=== PATIENT | female | born 1980 | race Caucasian/White ===

== ENCOUNTER 2017-02-19 23:02 | Inpatient (IN) | payer OTHER ==
[~2017-02-19] VITALS: Ht 149.9 cm; Wt 77.1 kg
[2017-02-20] VITALS (9 sets, daily range): BP systolic 90–134; BP diastolic 46–86
[2017-02-20 01:09] LABS: BASOPHIL % 0.4 % (0-2); PLATELET COUNT 392 x10^3mcL (130-400); RED CELL DISTRIBUTION WIDTH 13.8 % (11.5-14.5)
[2017-02-20 01:12] LABS: CALCIUM 8.5 mg/dL (8.5-10.1); CARBON DIOXIDE 26.5 mmol/L (21-32); CHLORIDE SERUM 105 mmol/L (98-107); CREATININE SERUM 0.8 mg/dL (0.6-1.0); GFR1 > 60 mL/min; GLUCOSE SERUM 288 mg/dL (74-106); POTASSIUM SERUM 3.6 mmol/L (3.5-5.1); SODIUM SERUM 138 mmol/L (136-145)
[2017-02-20 01:18] LABS: ALKALINE PHOSPHATASE 148 U/L (46-116); ALT/SGPT 25 U/L (14-59); AST/SGOT 17 U/L (15-37); BILIRUBIN TOTAL 0.28 mg/dL (0.20-1.00); TOTAL PROTEIN, SERUM 7.4 g/dL (6.4-8.2)
[2017-02-20 01:19] LABS: ALBUMIN 3.3 g/dL (3.4-5.0)
[2017-02-20] MEDS ORDERED: METFORMIN HYDR500 M1 PO (01:31)
[2017-02-20 04:35] LABS: CHOLESTEROL/HDL RATIO 5.1; PHOSPHOROUS 3.3 mg/dL (2.5-4.9)
[2017-02-20 04:41] LABS: T3 TOTAL 1.22 ng/mL
[2017-02-20 04:42] LABS: FREE T4 1.18 ng/dL (0.76-1.46); FREE THYROXINE INDEX 3.5 ug/dL (1.4-4.5); T4(THYROXINE) 10.2 ug/dL (4.7-13.3)
[2017-02-20 05:57] LABS: microscopic required? NO
[2017-02-20 06:45] LABS: BASOPHIL % 0.2 % (0-2); PLATELET COUNT 344 x10^3mcL (130-400); RED CELL DISTRIBUTION WIDTH 13.9 % (11.5-14.5)
[2017-02-20 06:54] LABS: CALCIUM 8.1 mg/dL (8.5-10.1); CARBON DIOXIDE 20.9 mmol/L (21-32); CHLORIDE SERUM 107 mmol/L (98-107); CREATININE SERUM 0.8 mg/dL (0.6-1.0); GFR1 > 60 mL/min; GLUCOSE SERUM 315 mg/dL (74-106); POTASSIUM SERUM 3.9 mmol/L (3.5-5.1); SODIUM SERUM 139 mmol/L (136-145)
[2017-02-20 07:34] LABS: UA SPECIFIC GRAVITY 1.025 (1.005-1.035); urine erythrocyte NEGATIVE (NEGATIVE)
[2017-02-20 07:37] LABS: AMPHETAMINE QUAL UR NONE DETECTED (NEG <=1000)
[2017-02-21 05:39] VITALS: BP 108/63
[2017-02-21 06:59] LABS: BASOPHIL % 0 % (0-2); PLATELET COUNT 396 x10^3mcL (130-400); RED CELL DISTRIBUTION WIDTH 14.1 % (11.5-14.5)
[2017-02-21 07:11] LABS: CALCIUM 8.9 mg/dL (8.5-10.1); CARBON DIOXIDE 21.6 mmol/L (21-32); CHLORIDE SERUM 106 mmol/L (98-107); CREATININE SERUM 0.8 mg/dL (0.6-1.0); GFR1 > 60 mL/min; GLUCOSE SERUM 283 mg/dL (74-106); MAGNESIUM 1.8 mg/dL (1.8-2.4); PHOSPHOROUS 3.9 mg/dL (2.5-4.9); POTASSIUM SERUM 4.3 mmol/L (3.5-5.1); SODIUM SERUM 138 mmol/L (136-145)
[2017-02-21 09:20] VITALS: BP 110/64
[2017-02-21 17:10] VITALS: BP 101/50
[2017-02-21 20:23] VITALS: BP 105/47
[2017-02-22 05:40] VITALS: BP 119/65
[2017-02-22 07:26] LABS: CALCIUM 9.1 mg/dL (8.5-10.1); CARBON DIOXIDE 26.6 mmol/L (21-32); CHLORIDE SERUM 104 mmol/L (98-107); CREATININE SERUM 0.9 mg/dL (0.6-1.0); GFR1 > 60 mL/min; GLUCOSE SERUM 204 mg/dL (74-106); SODIUM SERUM 138 mmol/L (136-145)
[2017-02-22 07:29] LABS: BASOPHIL % 0.1 % (0-2); RED CELL DISTRIBUTION WIDTH 13.9 % (11.5-14.5)
[2017-02-22 07:47] LABS: PLATELET COUNT 443 x10^3mcL (130-400)
[2017-02-22 09:10] VITALS: BP 104/57
[2017-02-22 12:04] VITALS: Ht 149.9 cm; Wt 77.1 kg
[2017-02-22] MEDS ORDERED: ZESTRIL2.5 MG PO (12:15)
[2017-02-22] MEDS ORDERED: PULMICORT180 MCG/Ac INH (12:17)
[2017-02-22] MEDS ORDERED: VENTOLIN H0.09 MG/A1 INH (12:18)
[2017-02-22] MEDS ORDERED: GLUCOPHAGE1000 MG PO (12:19)
[2017-02-22] MEDS ORDERED: LEVAQUIN750 MG PO (12:25)
[2017-02-22] MEDS ORDERED: [UNRECOGNIZED DRUG - SUPPLY] MC (12:27)
[2017-02-22] MEDS ORDERED: [UNRECOGNIZED DRUG - SUPPLY] MC (12:27)
[2017-02-22] MEDS ORDERED: [UNRECOGNIZED DRUG - SUPPLY] MC (12:28)
[2017-02-22] MEDS ORDERED: ATRINH INH (12:37)
[2017-02-22 12:49] VITALS: BP 104/57
[2017-02-22] MEDS ORDERED: SERTRALINE50 M1 PO (12:50)
[2017-02-22] MEDS ORDERED: GLU10 PO (12:55)
[2017-02-22] MEDS ORDERED: OSCD PO (12:56)
[2017-02-22] MEDS ORDERED: TUMS PO (12:56)
[2017-02-22] MEDS ORDERED: MONTELUKAST SOD10 M1 PO (12:57)
[2017-02-22] MEDS ORDERED: LAC PO (12:58)
[2017-02-22] MEDS ORDERED: ROBDML PO (13:19)
[2017-02-22] MEDS ORDERED: TYLENOL325 M1 PO (13:19)
== END 2017-02-22 15:02 | disposition home or self-care (01) | DRG 720 ==
LOC: ED 23:02 → DU 02-20 02:47 → MU 02-20 02:47 → DU 02-20 03:26 → MU 02-20 07:31
PROVIDERS: Emergency Medicine; ADMIT Family Medicine
DX: A41.9 Sepsis, unspecified organism (principal); J18.9 Pneumonia, unspecified organism; E44.0 Moderate protein-calorie malnutrition; E83.51 Hypocalcemia; E66.01 Morbid (severe) obesity due to excess calories; E11.9 Type 2 diabetes mellitus without complications; D64.9 Anemia, unspecified; I10 Essential (primary) hypertension; E78.5 Hyperlipidemia, unspecified; R65.20 Severe sepsis without septic shock; G47.00 Insomnia, unspecified; Z82.49 Family history of ischemic heart disease and other diseases of the circulatory system; Z90.49 Acquired absence of other specified parts of digestive tract; Z98.891 History of uterine scar from previous surgery; Z68.34 Body mass index [BMI] 34.0-34.9, adult
CPT/HCPCS: 82962; 84439; 85378; 87804; 90658; 90732; J0456; J0696; J1885; J1956; J2920; J2930; J7030; J7050; J7613; J7620; J7626; J7644; Q0092

== ENCOUNTER 2018-08-03 00:33 | Inpatient (IN) | payer OTHER ==
[~2018-08-03] VITALS: Ht 149.9 cm; Wt 74.0 kg
[~2018-08-03 00:33] MED LIST: ATRINH INH; GLU10 PO; GLUCOPHAGE1000 MG PO; LAC PO; LEVAQUIN750 MG PO; METFORMIN HYDR500 M1 PO; MONTELUKAST SOD10 M1 PO; OSCD PO; PULMICORT180 MCG/Ac INH; ROBDML PO; SERTRALINE50 M1 PO; TUMS PO; TYLENOL325 M1 PO; VENTOLIN H0.09 MG/A1 INH; ZESTRIL2.5 MG PO; [UNRECOGNIZED DRUG - SUPPLY] MC; [UNRECOGNIZED DRUG - SUPPLY] MC; [UNRECOGNIZED DRUG - SUPPLY] MC
[2018-08-03 00:38] VITALS: Ht 149.9 cm; Wt 74.0 kg
--- NOTE | 2018-08-03 00:59 | NUR ---
DR NAVA AT BEDSIDE
--- NOTE | 2018-08-03 00:59 | NUR ---
PT PRESENTS TO THE ED WITH C/C OF BODY ACHES, FEVER AND COUGH SINCE FRIDAY NIGHT. PT EXPRESSED CHILLS UNRELEIVED WITH ADVIL OR TYLENOL. PT EXPRESSED URINE PAIN. DENIES NAUSEA/VOMITING OR DIAHHREA. RESPIRATIONS E/U SKIN IS WARM TO TOUCH. PT IS A/O X 4 SPEECH IS CLEAR AND APPROPRAITE. AMBULATES WITH STEADY GAIT. URINE CUP GIVEN FOR COLLECTION. EDUCATED ABOUT CHANGE. NO APPARENT DISTRESS.
--- NOTE | 2018-08-03 01:17 | NUR ---
EKG AND LAB IN ROOM, INFLUENZA AND URINE COLLECTED
[2018-08-03 01:35] LABS: BASOPHIL % 0.2 % (0-2); PLATELET COUNT 324 x10^3mcL (130-400); RED CELL DISTRIBUTION WIDTH 13.2 % (11.5-14.5)
[2018-08-03 01:48] LABS: microscopic required? YES; urine erythrocyte 2+ (NEGATIVE)
[2018-08-03 01:59] LABS: CALCIUM 9.1 mg/dL (8.5-10.1); CARBON DIOXIDE 24.9 mmol/L (21-32); CHLORIDE SERUM 95 mmol/L (98-107); CREATININE SERUM 0.9 mg/dL (0.6-1.0); GFR1 > 60 mL/min; GLUCOSE SERUM 413 mg/dL (74-106); POTASSIUM SERUM 3.2 mmol/L (3.5-5.1); SODIUM SERUM 132 mmol/L (136-145)
[2018-08-03 02:02] LABS: ALKALINE PHOSPHATASE 230 U/L (46-116); ALT/SGPT 86 U/L (14-59); AST/SGOT 59 U/L (15-37); BILIRUBIN TOTAL 0.6 mg/dL (0.20-1.00); CHOLESTEROL 195 mg/dL (<200); HDL CHOLESTEROL 41 mg/dL (40-60); TOTAL PROTEIN, SERUM 7.6 g/dL (6.4-8.2)
[2018-08-03 02:07] LABS: ALBUMIN 3.2 g/dL (3.4-5.0)
--- NOTE | 2018-08-03 03:06 | NUR ---
MEDICATIONS GIVEN PER ORDER. NO INFILTRATION OR PAIN NOTED. POSTIONED PT FOR COMFORTF. FLUIDS COMPLETE BP 113/70 PULSE 97 RESPIRTIONS 19. PT IS CALM , NO DISTRESS NOTED. RESPIRATIONS E/U
--- NOTE | 2018-08-03 05:42 | NUR ---
REPORT GIVEN TO EZRA TO ASSUME CARE PT
[2018-08-03 05:52] VITALS: BP 104/49
--- NOTE | 2018-08-03 06:04 | NUR ---
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
--- NOTE | 2018-08-03 06:10 | NUR ---
RECEIVED CALL FROM DR CANTU, NEW ORDERS CARRRIED OUT.
--- NOTE | 2018-08-03 06:48 | NUR ---
PT RESTING, BREATHING EVEN AND UNLABORED WITH NO SOB NOTED. FAMILY AT BEDSIDE. NO SIGNS OF ACUTE DISTRESS NOTED. WILL ENDORSE CARE TO DAY SHIFT RN.
--- NOTE | 2018-08-03 07:23 | NUR ---
PT DENIES ANY PAIN AT THIS TIME. BREATHING EVEN AND UNLABORED WITH NO SOB NOTED. ENDORSED CARE TO DAY SHIFT RN, ALL QUESTIONS ADDRESSED.
--- NOTE | 2018-08-03 08:00 | NUR ---
RECEIVED PATIENT WHO IS ANXIOUS AT THIS TIME. SHE IS UNSURE ABOUT HER IV AND THE MEDICATIONS OFFERED. SHE IS ANXIOUS ABOUT STAFF AND HER PLAN OF CARE. REASURED HER AND ASSESSED HER. SHE HAS A HISTORY OF DVT AND PE AND HAS BEEN ON LOVANOX AND NOW ORDERED IS ELIQUIS. PATIENT HAS BEEN WITH SOME SWELLING TO THE EXTREMITTIES AND ONE PLUS TO THE LEGS. SHE DENIES PAIN AT THIS TIME EXCEPT TO THE STOMACH. SHE WAS RELIEVED BY EATTING HER MORNING MEAL. IV INTACT, PATIENT HAS NO SIGNS OF INFILTRATE FROM NATHAN PRVIOUS SITE ANYMORE NOTED. FLAKITO TAHS DIMINISHED BREATH SOUNDS WITH SOME FINE RALES AND CONTINUE DON HHN AND ANTIBIOTICS ORDERED. SHE HAS A [place] TO GRAVIYT AND URINE IS MEDIUM ANNIE AND AND SHE HAS ACTIVE BOWEL SOUNDS. NOTED THE URINE IS WITH LEUKOCYTES NOTED. PATIENT HAS NOT COMPLAINTS OF SOB AT THIS TIME. VITALS AT THIS TIME AT 98.4, 87, 18, 130/52, 95%. AHD AND NOTED LABS OF BUN AT 27.0, CA AT 7.8, PT AT 14.0 ANDINR AT 1.4. PTT AT 49.6. TOSIN SHERIE BEEN AT [facility] FOR REHAB POST A CVA. SHE HAS BEEN ON BEDREST AND NEEDS MAS ASSIST WITH TRANFERS AT THIS TIME. PT TO WORK WITH HER INDICATED.
--- NOTE | 2018-08-03 08:00 | NUR ---
RECEIVED PATIENT WHO HAS SOME PAIN TT HE ABDONE BUT REFUSED PAIN MEDICATION AT THIS TIME. IV INTACT AND WILL START THE FLUIDS AND GIVE THE ANTIBIOTIC. FAMILY AT BEDSIDE AND SUPPORTIVE WITH CARE. PATIENT HASBEEN AMBULATORY AND DENIES ANY FEVER AT THSI TIME. NOTED LABS SHOW THE PATIENT HAS LAST BLOOD SUGAR AT T260 AND RECEIVED 9 UBITS IF REGULAR. NOTED LABS ARE POSSITIVE FOR UTI AND AN AIC AT 11.2. SHE HAS ON AND OF CHILLS BUT NO FEVER AT THIS TIME. PATIENT HAS HISTORY OF DIABETIS NOTED.
[2018-08-03 09:36] VITALS: BP 103/59
--- NOTE | 2018-08-03 10:34 | NUR ---
CHECKED TEMPTERATURE AND AT 99.8 AT THIS TIME. PATIENT IS COMPLINING OF CHILLS BUT NO FEVER AT THIS TIME. WILL REQUEST MEDICATION FOR FEVER FROM THE RESIDENT WHEN HE ARRIVES.
--- NOTE | 2018-08-03 13:07 | NUR ---
BLOOD SUGAR AT 332 AND GAVE 12 UNITS OF REGULAR ORDERED. SEEN BY DR SALVADOR AND STAFF REQUESTED TYLENOL FOR POSSIBLE FEVER DUE TO RECENT CHILLS. SHE HAS NO FEVER AT THIS TIME. WILL CONTINUE TO MONITOR AND FAMILY AT BESIDE AND SUPPORTIVE WITH CARE.
--- NOTE | 2018-08-03 13:08 | NUR ---
FINALLY AWAKE AND IS ABLE TO TAKE FOOD AND TO TAKE MEDICATIONS. PATIENT IS SLOW AND DELIBERATE BUT DID GIVEN PERMISSION FOR RETREAVAL OF INFORMATION FROM THE HOSPITAL IN [facility]. PATIENT IS IN NO DIS TERSS AT THISTIME AND IS CALM. ENCOURAGE DIET AND FLUIDS INDICATED. WILL BE GIVING K RIDER ORDERED.
--- NOTE | 2018-08-03 13:29 | NUR ---
PATIENT WITH EMESIS AND TEMPERATURE OF 103. REQUESTED ORDER FROM DR SALVADOR FOR TYLENOL AND ZOFRAN. AWAITING ORDERS AT THIS TIME.
--- NOTE | 2018-08-03 15:00 | NUR ---
ULTRASOUND AT BEDSIDE. AWAITING RESULTS AT THIS TIME. GAVE ZOFRAN FOR THE NAUSEA AND WILL GIVE THE TYLENOL FOR THE FEVER AND HEADACHE INDICATED.
--- NOTE | 2018-08-03 17:06 | NUR ---
PAGED DR SALVADOR TO SEE IF HEWANTS TO CONTINUE THE METFORMIN THE PATIENT TAKES AT HOME. AWAITING CALL BACK AT [facility] TIME. WILL OFFER MOTRIN FOR HEADACHE SHE HAS HAD NO RELIEF FROM THE TYLENOL GIVEN.
[2018-08-03 17:20] VITALS: BP 153/132
--- NOTE | 2018-08-03 18:27 | NUR ---
GAVE THE METFORMIN AN DTOELRAD DIET ORDERED. SPOUSE AT [facility] AND SUPPORTIV WITH CARE. HEATHER HAS OCCASIONAL GRIMACING AND SHE HAS SO FAR NOT INDICATED ANY NEED FOR FURTHER PAIN MEDICATION AT THIS TIME. NO SHIVERING NOTED.
--- NOTE | 2018-08-03 20:00 | NUR ---
PT RECIEVED AAO REG RESP NO SOB V/S STABLE,KEPT CLEAN AND DRY TO TOUCH,IV INFUSING WELL WITH THE SITE PATENT AND INTACT,BED IN THE LOW POSITION AND LOCKED,KEPT CLEAN AND DRY TO TOUCH AND WILL CONTINUE TO MONITOR.
[2018-08-03 22:38] VITALS: BP 93/54
--- NOTE | 2018-08-04 00:09 | NUR ---
PT SLEEPING SOUNDLY AT THIS TIME,WILL CONTINUE TO MONITOR.
--- NOTE | 2018-08-04 03:14 | NUR ---
PT WITH C/O OF HAVING CHILLS TEMP CHECKED 99.9 ORALLY,PT WAS GIVEN 650 MG PO TYLENOL ORDER AND WILL CONTINUE TO MONITOR.
[2018-08-04 06:22] VITALS: BP 93/57
--- NOTE | 2018-08-04 06:38 | NUR ---
PT HAD A RESTING NIGHT NO CHANGE BUT C/O OF H/A ARCHING IN PAIN AT THE SCALE OF 6/10,PT WAS MEDICATED WITH MEDS ORDER AND WILL CONTINUE TO MONITOR.
--- NOTE | 2018-08-04 07:15 | NUR ---
RECEIVED BEDSIDE REPORT FROM WALLPAPER CLEANER NURSE AT THIS TIME. PATIENT RESTING COMFORTABLY IN BED. NO APPARENT DISTRESS OR DISCOMFORT NOTED. BREATHING EVEN AND UNLABORED. NO RESPIRATORY DISTRESS NOTED. PATIENT DENIES SHORTNESS OF BREATH. PATIENT DENIES CHEST PAIN AT THIS TIME. IV PATENT AND INTACT INFUSING AT 120ML/HR. ALL QUESTIONS AND CONCERNS ADDRESSED. ALL NEEDS ATTENDED TO. WILL CONTINUE TO MONITOR
[2018-08-04 07:32] LABS: BASOPHIL % 0.2 % (0-2); PLATELET COUNT 248 x10^3mcL (130-400); RED CELL DISTRIBUTION WIDTH 13.4 % (11.5-14.5)
[2018-08-04 07:48] LABS: ALKALINE PHOSPHATASE 178 U/L (46-116); ALT/SGPT 68 U/L (14-59); AST/SGOT 49 U/L (15-37); BILIRUBIN DIRECT 0.14 mg/dL (0.0-0.2); BILIRUBIN TOTAL 0.5 mg/dL (0.20-1.00); CALCIUM 7.8 mg/dL (8.5-10.1); CARBON DIOXIDE 24.2 mmol/L (21-32); CHLORIDE SERUM 103 mmol/L (98-107); CREATININE SERUM 0.7 mg/dL (0.6-1.0); GFR1 > 60 mL/min; GLUCOSE SERUM 197 mg/dL (74-106); LIPASE 38 IU/L (73-393); SODIUM SERUM 138 mmol/L (136-145)
[2018-08-04 07:49] LABS: ALBUMIN 2.2 g/dL (3.4-5.0)
[2018-08-04 09:00] VITALS: BP 89/56
--- NOTE | 2018-08-04 10:22 | NUR ---
ALL MORNING MEDICATIONS ADMINISTERED. PATIENT TOLERATED MEDICATION WELL. NO ADVERSE EFFECTS NOTED. ALL NEEDS ATTENDED TO. WILL CONTINUE TO MONITOR
--- NOTE | 2018-08-04 11:33 | NUR ---
DR SALVADOR AWARE OF PATIENT POTASSIUM 3.0. TELEPHONE ORDER FOR 40 MEQ PO. TELEPHONE ORDER NOTED AND FOLLOWED THROUGH. WILL PROCEED ORDERED
[2018-08-04 11:43] VITALS: BP 89/56
--- NOTE | 2018-08-04 15:02 | NUR ---
PATIENT STABLE TO BE DISCHARGED TO HOME. DISCHARGE INSTRUCTIONS GIVEN WELL EDUCATION. INSTRUCTED PATIENT ABOUT FOLLOW UP APPOINTMENT. PATIENT VERBALIZES UNDERSTANDING. PATIENT INFORMED DR SALVADOR HAS PHONE CALLED HER PHARMACY IN [place] FOR METFORMIN AND GLUCOMETER. IV REMOVED WITH CATH INTACT. ID BANDS REMOVED. ALL BELONGINGS WITH PATIENT. ALL QUESTIONS AND CONCERNS ADDRESSED. ALL NEEDS ATTENDED TO. ESCORTED DOWN TO THE LOBBY BY RN AT THIS TIME
== END 2018-08-04 14:55 | disposition home or self-care (01) | DRG 720 ==
LOC: ED 00:33 → MU 04:08
PROVIDERS: Emergency Medicine; ADMIT Internal Medicine Pulmonary Disease
DX: A41.9 Sepsis, unspecified organism (principal); E11.65 Type 2 diabetes mellitus with hyperglycemia; N10 Acute pyelonephritis; E87.6 Hypokalemia; Z72.89 Other problems related to lifestyle; Z79.84 Long term (current) use of oral hypoglycemic drugs
CPT/HCPCS: 82962; 87804; J0696; J1885; J2405; J7030; Q0092